=== PATIENT | female | born 1975 | race Two or more races ===

== ENCOUNTER 2020-11-19 16:21 | Emergency (ER) | payer SELFPAY ==
[~2020-11-19] VITALS: Ht 157.5 cm; Wt 62.6 kg
[2020-11-19 16:29] VITALS: BP 137/76
[2020-11-19] MEDS ORDERED: LIDOCAINE/EPI 1% 1:100000 20 ML VIAL INJ ONE (17:00)
[2020-11-19] MEDS ORDERED: AMPICILLIN/SULBACTAM 1.5 GM VIAL IM ONE (17:00)
[2020-11-19] MEDS ORDERED: BACITRACIN OINT 500 UNITS/GM PKT TP ONE ×2 (17:00→17:01)
[2020-11-19] MEDS ORDERED: LIDOCAINE MPF 1% 5 ML ONE ×2 (17:01→17:59)
[2020-11-19] MEDS ORDERED: IBUPROFEN 600 MG TAB PO ONE (17:20)
[2020-11-19] MEDS ORDERED: AMOX-999 PO (18:09)
[2020-11-19] MEDS ORDERED: MUPI2CRE22 TP (18:09)
== END 2020-11-19 19:11 | disposition home or self-care (01) ==
LOC: MED 16:21
DX: S71.151A Open bite, right thigh, initial encounter (principal); Z79.2 Long term (current) use of antibiotics; W54.0XXA Bitten by dog, initial encounter; Y93.89 Activity, other specified; Y92.89 Other specified places as the place of occurrence of the external cause; Y99.8 Other external cause status
CPT/HCPCS: 12002; 90471; 90715; 96372; 99284; J0295; J2001